=== PATIENT | female | born 1990 | race Caucasian/White ===

== ENCOUNTER 2019-06-20 11:43 | Outpatient (CLI) | payer OTHER ==
[~2019-06-20] VITALS: Ht 162.6 cm; Wt 72.7 kg
[2019-06-20 11:48] VITALS: BP 114/73
[2019-06-20] MEDS ORDERED: PREN1TAB60 PO (11:58)
[2019-06-20 13:07] LABS: BARBITURATE SCREEN, URINE Negative (Negative); BENZODIAZEPINE SCREEN, URINE Negative (Negative); CANNABINOID SCREEN, URINE Negative (Negative); COCAINE SCREEN, URINE Negative (Negative); METHADONE SCREEN, URINE Negative (Negative); OPIATE SCREEN, URINE Negative (Negative)
[2019-06-20 13:19] LABS: AMPHETAMINE SCREEN, URINE Negative (Negative)
== END 2019-06-20 13:06 | disposition home or self-care (01) ==
LOC: LDOP 11:43
PROVIDERS: ATTEND Obstetrics & Gynecology
DX: O46.8X3 Other antepartum hemorrhage, third trimester (principal); Z3A.00 Weeks of gestation of pregnancy not specified; Z79.899 Other long term (current) drug therapy
CPT/HCPCS: 59025; 80307; 84112; 99201; G0463

== ENCOUNTER 2019-06-21 08:50 | Outpatient (CLI) | payer OTHER ==
[~2019-06-21] VITALS: Ht 162.6 cm; Wt 75.0 kg
[~2019-06-21 08:50] MED LIST: PREN1TAB60 PO
== END 2019-06-21 10:08 | disposition home or self-care (01) ==
LOC: LDOP 08:50
PROVIDERS: ATTEND Obstetrics & Gynecology
DX: O26.893 Other specified pregnancy related conditions, third trimester (principal); R10.9 Unspecified abdominal pain; Z3A.39 39 weeks gestation of pregnancy
CPT/HCPCS: 59025; 89060; 99211; G0463; Q0114

== ENCOUNTER 2019-06-21 16:31 | Inpatient (IN) | payer OTHER ==
[~2019-06-21] VITALS: Ht 162.6 cm; Wt 75.0 kg
[2019-06-21] MEDS: LACTATED RINGERS 1,000 ML IV SCH (16:40)
[2019-06-21] MEDS ORDERED: OXYTOCIN 30U/ 0.9% NaCL 500ML 500 ML IV ONE (16:43)
[2019-06-21] MEDS ORDERED: NEWBORN KIT ONE (16:45)
[2019-06-21] MEDS ORDERED: FENTANYL PF 100 MCG/2ML IV PRN (17:00)
[2019-06-21] MEDS ORDERED: TERBUTALINE 1 MG/ML, 1ML IVPush PRN (17:00)
[2019-06-21] MEDS ORDERED: ONDANSETRON 2MG/ML, 2ML IVPush PRN (17:00)
[2019-06-21] MEDS ORDERED: TERBUTALINE 1 MG/ML, 1ML SQ PRN (17:00)
[2019-06-21] MEDS ORDERED: SIMETHICONE 80 MG CHEW TAB PO PRN (17:30)
[2019-06-21] MEDS ORDERED: OXYcodone/APAP 5/325MG TABLET PO PRN (17:30)
[2019-06-21] MEDS ORDERED: MISOPROSTOL 200 MCG TABLET PO PRN (17:30)
[2019-06-21 17:37] LABS: BASOPHILS # (AUTO) 0.01 x10^3/uL (0-0.1); BASOPHILS % (AUTO) 0 % (0-1); EOSINOPHILS % (AUTO) 0 % (1-7); LYMPHOCYTES # (AUTO) 0.85 x10^3/uL (1-3.4); LYMPHOCYTES % (AUTO) 11 % (22-44); MD NO; MEAN CORPUSCULAR HEMOGLOBIN 29.1 pg (27.0-34.8); MEAN CORPUSCULAR VOLUME 88.3 fL (80-100); MONOCYTES # (AUTO) 0.37 x10^3/uL (0.2-0.8); MONOCYTES % (AUTO) 5 % (2-9); NEUTROPHILS % (AUTO) 85 % (42-75); PLATELET COUNT 257 x10^3/uL (130-400); RED BLOOD COUNT 3.75 x10^6/uL (3.82-5.3); RED CELL DISTRIBUTION WIDTH 15.7 % (9.6-15.2)
[2019-06-21] MEDS ORDERED: OXYTOCIN 30U/ 0.9% NaCL 500ML 500 ML ONE (17:42)
[2019-06-21] MEDS ORDERED: IBUPROFEN 600 MG TABLET ONE (17:42)
[2019-06-21] MEDS: IBUPROFEN 600 MG TABLET PO PRN (17:51)
[2019-06-21] MEDS: OXYTOCIN 30U/ 0.9% NaCL 500ML 500 ML IV SCH (17:52)
[2019-06-21 19:00] VITALS: BP 108/69
[2019-06-21 19:30] VITALS: BP 110/72
[2019-06-21] MEDS ORDERED: DIPH,PERTUSS(ACELL),TET VAC/PF NC IM-VACC ONE (19:30)
[2019-06-21 23:15] VITALS: BP 105/71
[2019-06-22] MEDS: LACTATED RINGERS 1,000 ML IV SCH ×2 (00:43→08:43)
[2019-06-22 01:48] LABS: BASOPHILS # (AUTO) 0.01 x10^3/uL (0-0.1); BASOPHILS % (AUTO) 0 % (0-1); EOSINOPHILS # (AUTO) 0.01 x10^3/uL (0-0.4); EOSINOPHILS % (AUTO) 0 % (1-7); LYMPHOCYTES # (AUTO) 1.92 x10^3/uL (1-3.4); LYMPHOCYTES % (AUTO) 21 % (22-44); MD NO; MEAN CORPUSCULAR HGB CONC 32.5 g/dL (32.4-35.8); MEAN CORPUSCULAR VOLUME 89.4 fL (80-100); MEAN PLATELET VOLUME 8.3 fL (7.4-10.4); MONOCYTES # (AUTO) 0.56 x10^3/uL (0.2-0.8); MONOCYTES % (AUTO) 6 % (2-9); NEUTROPHILS # (AUTO) 6.79 x10^3/uL (1.8-6.8); NEUTROPHILS % (AUTO) 73 % (42-75); PLATELET COUNT 265 x10^3/uL (130-400); RED BLOOD COUNT 3.11 x10^6/uL (3.82-5.3); RED CELL DISTRIBUTION WIDTH 15.4 % (9.6-15.2)
[2019-06-22] MEDS: OXYTOCIN 30U/ 0.9% NaCL 500ML 500 ML IV SCH ×3 (03:04→23:04)
[2019-06-22] MEDS: IBUPROFEN 600 MG TABLET PO PRN ×3 (04:25→18:53)
[2019-06-22 04:30] VITALS: BP 123/77
[2019-06-22 07:20] VITALS: BP 104/67
[2019-06-22] MEDS: DOCUSATE 100 MG CAPSULE PO PRN (11:36)
[2019-06-22] MEDS: PRENATAL VIT/IRON/FA 1 EACH TABLET PO SCH (11:36)
[2019-06-22 12:26] VITALS: BP 97/61
[2019-06-22 19:30] VITALS: BP 106/71
[2019-06-23] MEDS: IBUPROFEN 600 MG TABLET PO PRN ×2 (02:54→09:09)
[2019-06-23 08:00] VITALS: BP 112/69
[2019-06-23] MEDS: OXYTOCIN 30U/ 0.9% NaCL 500ML 500 ML IV SCH (09:04)
[2019-06-23] MEDS: PRENATAL VIT/IRON/FA 1 EACH TABLET PO SCH (09:09)
[2019-06-23] MEDS: DOCUSATE 100 MG CAPSULE PO PRN (09:09)
[2019-06-23] MEDS ORDERED: IBUP-1222 PO (13:11)
== END 2019-06-23 15:20 | disposition home or self-care (01) | DRG 776 ==
LOC: LDIP 16:31 → 2NW 19:13
PROVIDERS: ADMIT Obstetrics & Gynecology; ATTEND Obstetrics & Gynecology
PROC: 10E0XZZ Delivery of Products of Conception, External Approach (ICD-10-PCS; principal; 2019-06-21)
DX: Z39.0 Encounter for care and examination of mother immediately after delivery (principal)
CPT/HCPCS: 36415; 59414; 85025; 86592; 86762; 86850; 86900; 99285; G0378; J2590; J7120